=== PATIENT | female | born 1985 | race Caucasian/White ===

== ENCOUNTER 2018-01-29 11:30 | Emergency (ER) | payer SELFPAY ==
[2018-01-29 11:31] VITALS: BP 160/85; PULSE 105; RESP 18; TEMP 36.6; O2SAT 99; BMI 33.4
--- NOTE | 2018-01-29 11:48 | EKG12_ITS ---
Test Reason : NUMBNESS/TINGLING Blood Pressure : / mmHG Vent. Rate : 092 BPM Atrial Rate : 092 BPM P-R Int : 126 ms QRS Dur : 096 ms QT Int : 358 ms P-R-T Axes : 056 083 026 degrees QTc Int : 442 ms Normal sinus rhythm Normal ECG Confirmed by JONATHAN TORRES, ELEANOR ([id number]), editorial director RAFFY SANDS ([id number] on 02/02/2018 2:27:11 PM Referred By: ZULY Confirmed By:ELEANOR CASTILLO MD
--- NOTE | 2018-01-29 11:49 | ED.VISSUMM ---
- ER Visit Summary Date of Service: 01/29/18 Chief Complaint: [] Whole body tingling sensation History of Present Illness: The patient is a 32 F [] denies any past history reports that today she woke her usual state of health she went to work and while at work she began to have a sense that her whole body was tingling she drank some orange juice sat down the symptoms persisted and she came in for evaluation. Since that episode which lasted for unspecified period of time but probably no more than a few minutes per the patient she has been feeling fine. At no time did she have loss of consciousness headache change in vision or any loss of her functional ability. She does report that for the last 3-5 days she has had intermittent shooting pains from her neck across her left shoulder into her left hand and sometimes she indicates that there is a numbness sensation that basically goes from the base of the thumb to the hyperthenar region and in a horizontal fashion it does not involve her fingers it does not involve her ability to use her left upper extremity anyway, it does not involve her right upper extremity or any other extremities. She has no past history of any kind. Specifically she denies hypertension diabetes stroke seizure neuromuscular condition she is on no medications she occasionally smokes marijuana uses no other drugs, review of systems are negative for fever cough or any other condition she indicates her periods have been on time she denies being bowel bladder habits have been normal, She does indicate she has history of anxiety and she has had whole body numbness spells in the past related to her anxiety she has not seen a physician for this, and again no history of brain tumor or stroke seizure [employer] disorder or any other medical problems Physical Examination: [] Her current blood pressure was 140/80 her other vitals are within normal range again she states she has no symptoms at this time she feels back to her baseline her HEENT exam is unremarkable her neck is supple her lungs are clear the heart tones are normal the abdomen is soft nontender BMI 100, upper and lower extremities unremarkable she has full range of motion of all major joints in all 4 extremities her left hand exam is entirely unremarkable strong pulses good cap refill to all digits full range of motion of all digits and thumb full range of motion motion of the wrist elbow shoulder I cannot reproduce the sharp shooting pain that she gets she takes her finger and she draws it from her thenar region to her hyperthenar region describing this horizontal numbness she gets in her left hand occasionally but she is not having that now and there is no physical vascular or neurologic findings in the left hand or any other part of her body Test Results: [] Emergency Department Course and Treatment: [] I had a long conversation with her the exact etiology of all the above is unclear explained her we would be concerned for life-threatening conditions we could obtain CT scan lab work EKG etc. that she will require likely further management and workup she is feeling better she feels comfortable with discharge home she does not wish to have a CT scan at this time, and we did discuss that this study might detect life-threatening conditions, she is very aware of that, but does not wish to have that done, she is agreeable to having the lab work and the EKG The patient's EKG lab work troponin are all negative see those reports reevaluation resting comfortably her physical exam neurologic exam unchanged she feels fine now she wants to go home I explained to her again she needs further management for this whole body numbness there is another tingling sensations involving her left upper extremity she is comfort with outpatient management, she indicates she needs a work release slip and have also referred her to her primary care and also neurology for further management and she will return for change in symptoms Treatment Plan: [] Disposition: [] Home stable Impression: [] Whole body numbness resolved etiology unclear, intermittent left hand numbness This note was generated with [employer] dictation software. It may contain incorrect words, spelling, and punctuation that were not noted in review of the chart prior to signing ED Disposition - Plan for ED Patient: Chief Complaint: Numb/Ting Referrals: Josh Zaidi DO [Primary Care Provider] -
--- NOTE | 2018-01-29 11:54 | ED.DCSUM_ITS ---
- ER Visit Summary Date of Service: 01/29/18 Chief Complaint: [] Whole body tingling sensation History of Present Illness: The patient is a 32 F [] denies any past history reports that today she woke her usual state of health she went to work and while at work she began to have a sense that her whole body was tingling she drank some orange juice sat down the symptoms persisted and she came in for evaluation. Since that episode which lasted for unspecified period of time but probably no more than a few minutes per the patient she has been feeling fine. At no time did she have loss of consciousness headache change in vision or any loss of her functional ability. She does report that for the last 3-5 days she has had intermittent shooting pains from her neck across her left shoulder into her left hand and sometimes she indicates that there is a numbness sensation that basically goes from the base of the thumb to the hyperthenar region and in a horizontal fashion it does not involve her fingers it does not involve her ability to use her left upper extremity anyway, it does not involve her right upper extremity or any other extremities. She has no past history of any kind. Specifically she denies hypertension diabetes stroke seizure neuromuscular condition she is on no medications she oc casionally smokes marijuana uses no other drugs, review of systems are negative for fever cough or any other condition she indicates her periods have been on time she denies being bowel bladder habits have been normal, She does indicate she has history of anxiety and she has had whole body numbness spells in the past related to her anxiety she has not seen a physician for this, and again no history of brain tumor or stroke seizure [employer] disorder or any other medical problems Physical Examination: [] Her current blood pressure was 140/80 her other vitals are within normal range again she states she has no symptoms at this time she feels back to her baseline her HEENT exam is unremarkable her neck is supple her lungs are clear the heart tones are normal the abdomen is soft nontender BMI 100, upper and lower extremities unremarkable she has full range of motion of all major joints in all 4 extremities her left hand exam is entirely unremarkable strong pulses good cap refill to all digits full range of motion of all digits and thumb full range of motion motion of the wrist elbow shoulder I cannot reproduce the sharp shooting pain that she gets she takes her finger and she draws it from her thenar region to her hyperthenar region describing this horizontal numbness she gets in her left hand occasionally but she is not having that now and there is no physical vascular or neurologic findings in the left hand or any other part of her body Test Results: [] Emergency Department Course and Treatment: [] I had a long conversation with her the exact etiology of all the above is unclear explained her we would be concerned for life-threatening conditions we could obtain CT scan lab work EKG etc. that she will require likely further management and workup she is feeling better she feels comfortable with discharge home she does not wish to have a CT scan at this time, and we did discuss that this study might detect life- threatening conditions, she is very aware of that, but does not wish to have that done, she is agreeable to having the lab work and the EKG The patient's EKG lab work troponin are all negative see those reports reevaluation resting comfortably her physical exam neurologic exam unchanged she feels fine now she wants to go home I explained to her again she needs further management for this whole body numbness there is another tingling sensations involving her left upper extremity she is comfort with outpatient management, she indicates she needs a work release slip and have also referred her to her primary care and also neurology for further management and she will return for change in symptoms Treatment Plan: [] Disposition: [] Home stable Impression: [] Whole body numbness resolved etiology unclear, intermittent left hand numbness This note was generated with [email or web address] dictation software. It may contain incorrect words, spelling, and punctuation that were not noted in review of the chart prior to signing ED Disposition - Plan for ED Patient: Chief Complaint: Numb/Ting Referrals: Josh Zaidi DO [Primary Care Provider] -
[2018-01-29 12:13] VITALS: BP 144/83; PULSE 86; RESP 16; O2SAT 97
[2018-01-29 12:20] LABS: Absolute Lymphocyte Count 1.93 X10^3/ul (0.83-4.51); Absolute Neutrophil Count 4.1 X10^3/uL (2.0-7.7); Basophil# 0.04 X10^3/uL; Basophil% 0.6 % (0-1); Eosinophil# 0.09 X10^3/uL; Eosinophils% 1.4 % (0-5); Hematocrit 42.2 % (37-47); Hemoglobin 13.9 g/dl (12.0-15.0); Lymphocyte # 1.93 X10^3/ul (4.0); Lymphocyte % 29.3 % (19-41); Mean Corp Hgb Conc 32.9 g/gl (32-36); Mean Corpuscular Hgb 27.7 pg (27.0-32.0); Mean Corpuscular Volume 84.2 fL (81-99); Mean Platelet Vol. 10.6 fl (6.2-12.0); Monocyte# 0.46 X10^3/uL; Neutrophil # 4.06 X10^3/uL (2.7-7.7); Neutrophil % 61.7 % (47-70); Platelet Count 239 K/mm3 (150-450); RBC Distribution Width CV 13.2 % (11.6-14.6); RBC Distribution Width SD 40.4 fl (35.1-43.9); Red Blood Count 5.01 M/mm3 (4.2-5.4); White Blood Count 6.6 K/mm3 (4.4-11.0)
[2018-01-29 12:27] LABS: POSITIVE COUNT NO; POSITIVE DIFFERENTIAL NO; POSITIVE MORPHOLOGY NO
[2018-01-29 12:40] LABS: Anion Gap 7 (5-15); BUN 8 mg/dL (7-18); BUN/Creat Ratio 10.1 RATIO (10-20); Calcium,Total 8.6 mg/dL (8.5-10.1); Chloride 108 mmol/L (98-107); Creatinine, Serum 0.79 mg/dL (0.55-1.02); EST Glomerular Filtration Rate 90 mL/min (>60); Est Glom Filt Rate - Afr Amer 109 mL/min (>60); Estimated Creatinine Clearance 104.08 ml/min; Glucose 122 mg/dL (74-106); Potassium 4.1 mmol/L (3.5-5.1); Sodium Level 140 mmol/L (136-145)
[2018-01-29 13:27] LABS: hCG Titer Quant., Serum < 1 mIU/mL (<9 non-preg)
[2018-01-29 14:18] VITALS: RESP 16
--- NOTE | 2018-01-29 15:12 | ED.DEP ---
ED Disposition - Plan for ED Patient: Chief Complaint: Numb/Ting Instructions: ED Neuropathy Peripheral Referrals: Josh Zaidi DO [Primary Care Provider] - Ricardo Barry MD [STAFF PHYSICIAN] -
[2018-01-29 15:21] VITALS: BP 147/72; PULSE 80; RESP 18; O2SAT 98
== END 2018-01-29 15:24 | disposition home or self-care (01) ==
PROVIDERS: Emergency Provider Emergency Medicine; Family Provider Family Medicine; PCP Family Medicine
DX: R20.0 Anesthesia of skin (principal)
CPT/HCPCS: 80048; 84484; 84702; 85025; 93005; 99282; A4216